=== PATIENT | male | born 2000 | race African-American/Black ===

== ENCOUNTER 2024-08-12 15:21 | Emergency (ER) | payer MEDICAID ==
[~2024-08-12] VITALS: Ht 182.9 cm; Wt 66.2 kg
[2024-08-12 15:37] VITALS: TEMP 98.5
[2024-08-12 16:49] VITALS: BP 120/75; O2SAT 100
[2024-08-13 13:51] LABS: HIV-1 p24 ANTIGEN NON REACTIVE (NONREACTIVE); HIV-1/2 ANTIBODY NON REACTIVE (NONREACTIVE)
[2024-08-16 07:07] LABS: HEPATITIS B SURFACE AB Non Reactive (.)
== END 2024-08-12 16:48 | disposition home or self-care (01) ==
LOC: ER 15:34
DX: Z11.3 Encounter for screening for infections with a predominantly sexual mode of transmission (principal)
CPT/HCPCS: 36415; 86706; 86803; 87340; 87806